=== PATIENT | female | born 1950 | race Caucasian/White ===

== ENCOUNTER 2016-06-29 11:42 | Outpatient (CLI) | payer MEDICARE, OTHER | END 2016-06-29 11:43 | disposition home or self-care (01) | DX: C50.912 Malignant neoplasm of unspecified site of left female breast (principal) ==

== ENCOUNTER 2016-09-02 11:46 | Day surgery (SDC) | payer MEDICARE, OTHER ==
[2016-09-02] MEDS ORDERED: LACTATED RINGERS 1,000 ML IV ONE ×3 (12:21→14:55)
[2016-09-02] MEDS ORDERED: fentaNYL 250 MCG/5 ML VIAL IVP ONE (14:18)
[2016-09-02] MEDS ORDERED: MIDAZOLAM 2 MG/2 ML VIAL IVP ONE (14:18)
== END 2016-09-02 11:47 | disposition home or self-care (01) ==
PROC: 0DBP8ZX Excision of Rectum, Via Natural or Artificial Opening Endoscopic, Diagnostic (ICD-10-PCS; 2016-09-02)
PROC: 0DBN8ZX Excision of Sigmoid Colon, Via Natural or Artificial Opening Endoscopic, Diagnostic (ICD-10-PCS; principal; 2016-09-02 13:00)
DX: R19.7 Diarrhea, unspecified (principal); K62.1 Rectal polyp; K21.9 Gastro-esophageal reflux disease without esophagitis; E03.9 Hypothyroidism, unspecified; Z80.0 Family history of malignant neoplasm of digestive organs; K59.09 Other constipation; M81.0 Age-related osteoporosis without current pathological fracture; Z85.3 Personal history of malignant neoplasm of breast
CPT/HCPCS: 45331; J3010; J7120

== ENCOUNTER 2017-02-24 08:33 | Outpatient (CLI) | payer MEDICARE, OTHER ==
--- NOTE | 2017-02-24 13:09 | Mammography Report ---
DIGITAL DIAGNOSTIC BILATERAL MAMMOGRAM: 02/24/2017 CLINICAL INDICATION: A 66-year-old nulliparous patient with personal history of left breast cancer s tatus post lumpectomy and radiation therapy. TECHNIQUE: Bilateral CC and MLO views, left true lateral and spot magnification views, bilateral lat erally exaggerated craniocaudal views. COMPARISON: 06/29/2016, 10/28/2015, 01/03/2015, 12/25/2014, 12/03/2014, 09/11/2013, 11/09/2011, 08/2009 FINDINGS: The breasts again demonstrate scattered fibroglandular densities bilaterally. Postoperati ve and post-treatment changes are again noted in the left breast, with continued involution of the se rafael. Punctate, typically benign calcifications are present. No suspicious masses, clustered microc alcifications, or regions of architectural distortion are identified. IMPRESSION: BENIGN FINDINGS. RECOMMENDATION: Routine annual screening unless otherwise clinically indicated. BIRADS CATEGORY 2 - BENIGN FINDINGS. STANDARD QUALIFYING STATEMENTS 1. This examination was reviewed with the aid of Computer-Aided Detection (CAD). 2. A negative or benign imaging report should not delay biopsy if clinically suspicious findings are present. Consider surgical consultation if warranted. More than 5% of cancers are not identified by i maging. 3. Dense breasts may obscure an underlying neoplasm. JOB #: [id number] EXT JOB #:[id number]
== END 2017-02-24 08:34 | disposition home or self-care (01) ==
LOC: DI 08:33
PROVIDERS: ATTEND Physician Assistant
DX: R92.2 Inconclusive mammogram (principal); Z85.3 Personal history of malignant neoplasm of breast
CPT/HCPCS: 77066

== ENCOUNTER 2018-04-05 15:15 | Outpatient (CLI) | payer MEDICARE, OTHER ==
--- NOTE | 2018-04-07 15:51 | DEXA Report ---
Reason: OSTEOPOROSIS Procedure Date: 04/05/2018 Accession Number: [id number] / [id number] Procedure: DEX - Dexa Spine and/or Hip CPT Code: FULL RESULT: EXAM: Dexa Spine and/or Hip DATE: 04/05/2018 4:10 PM CLINICAL HISTORY: OSTEOPOROSIS follow-up. Breast cancer. Thyroid hormone replacement therapy TECHNIQUE: Dual energy x-ray absorptiometry (DXA) was performed on a [employer] System. Regions measured are the AP Spine, femoral neck, and if needed forearm. COMPARISON: None. In accordance with the International Society for Clinical Densitometry (ISCD) guidelines, data from previous exams may be reanalyzed using current recommendations and techniques. This is done to allow a more accurate basis for comparison with the current study. FINDINGS: The data for the lumbar spine is as follows: BMD (g/cm/cm) T-SCORE Z-SCORE REGION L1 0.996 -1.1 0.2 L2 1.020 -1.5 -0.2 L3 1.076 -1.0 0.3 L4 1.045 -1.3 0.0 TOTAL 1.038 -1.2 0.1 NOTE: All evaluable vertebrae are used for classification The data for the hip is as follows: BMD (g/cm/cm) T-SCORE Z-SCORE REGION Neck 0.628 -2.9 -1.6 TOTAL 0.690 -2.5 -1.4 NOTE: The femoral neck or total proximal femur, whichever is lowest, is used for classification. * Denotes significant change at the 95% confidence level. Denotes dissimilar scan types or analysis methods. IMPRESSION: THE WHO CLASSIFICATION BASED ON THE INTERNATIONAL REFERENCE STANDARD IS OSTEOPOROSIS. THE FRACTURE RISK IS HIGH. RECOMMENDATION: Patients with diagnosis of osteoporosis or osteopenia should have regular bone mineral density assessment. For those eligible for Medicare, routine testing is allowed once every 2 years. Testing frequency can be increased for patients who have rapidly progressing disease or for those who are receiving medical therapy to restore bone mass. COMMENT: World Health Organization (WHO) definitions for osteoporosis and osteopenia: NORMAL BMD: T-score at -1.0 or higher, fracture risk is low OSTEOPENIA BMD: T-score between -1.0 and -2.5, fracture risk is increased. OSTEOPOROSIS BMD: T-score at -2.5 or lower, fracture risk is high. National Osteoporosis Foundation recommends: 1. Obtain adequate dietary calcium (at least 1200 mg per day) and vitamin D (400-800 international units per day). 2. Participate, as appropriate, in regular weightbearing and muscle-strengthening exercise. 3. Avoid tobacco use and reduce alcohol and caffeine intake. 4. For more detailed information see the website at www.NOF.org.
== END 2018-04-05 15:16 | disposition home or self-care (01) ==
LOC: DI 15:15
PROVIDERS: ATTEND Physician Assistant
DX: M81.0 Age-related osteoporosis without current pathological fracture (principal)
CPT/HCPCS: 77080

== ENCOUNTER 2018-04-05 15:17 | Outpatient (CLI) | payer MEDICARE, OTHER ==
--- NOTE | 2018-04-06 13:05 | Mammography Report ---
Reason: SCREEN w MARILIA Procedure Date: 04/05/2018 Accession Number: [id number] / [id number] Procedure: GRACE - Screening Mammo w/Marilia CPT Code: FULL RESULT: EXAM: Screening mammogram DATE: 04/05/2018 CLINICAL HISTORY: Screening mammogram TECHNIQUE: Bilateral CC and MLO views were obtained. COMPARISON: Mammogram 02/24/2017 FINDINGS: There are scattered fibroglandular densities. No suspicious masses, clustered microcalcifications, or regions of architectural distortion are identified. There is a left scar marker and biopsy clip. IMPRESSION: Benign findings RECOMMENDATION: Routine annual screening unless otherwise clinically indicated. BIRADS CATEGORY 2: Benign findings STANDARD QUALIFYING STATEMENTS: 1. This examination was not reviewed with the aid of Computer-Aided Detection (CAD). 2. A negative or benign imaging report should not delay biopsy if clinically suspicious findings are present. Consider surgical consultation if warrented. More than 5% of cancers are not identified by imaging. 3. Dense breasts may obscure an underlying neoplasm. 4. This examination was reviewed without the aid of 3D breast imaging (tomosynthesis).
== END 2018-04-05 15:18 | disposition home or self-care (01) ==
LOC: DI 15:17
PROVIDERS: ATTEND Physician Assistant
DX: Z12.31 Encounter for screening mammogram for malignant neoplasm of breast (principal); Z85.3 Personal history of malignant neoplasm of breast
CPT/HCPCS: 77063; 77067

== ENCOUNTER 2019-05-10 13:04 | Outpatient (CLI) | payer MEDICARE, OTHER ==
--- NOTE | 2019-05-11 08:23 | Mammography Report ---
Reason: SCREENING MAMMO Procedure Date: 05/10/2019 Accession Number: [id number] / [id number] Procedure: GRACE - Screening Mammo w/Mayank CPT Code: Final Report FULL RESULT: EXAM: Screening Mammo w/Mayank DATE: 05/10/2019 1:43 PM CLINICAL HISTORY: Screening encounter. History of nulliparity. Personal history of breast cancer status post left breast lumpectomy in 2014. TECHNIQUE: (B) - Bilateral CC, laterally exaggerated CC, MLO views were obtained. COMPARISON: 04/05/2018 through 10/21/2009. PARENCHYMAL PATTERN: (A) - The breast(s) demonstrate(s) scattered fibroglandular densities. FINDINGS: Postsurgical changes in the left breast are stable. There are no suspicious masses, calcifications, or areas of distortion. IMPRESSION: Benign findings. BI-RADS category 2. RECOMMENDATION: (ANNUAL) - Recommend routine annual screening mammography. BI-RADS CATEGORY: (2) - Benign Findings. STANDARD QUALIFYING STATEMENTS: 1. This examination was not reviewed with the aid of Computer-Aided Detection (CAD). 2. A negative or benign imaging report should not preclude biopsy if clinically suspicious findings are present. 3. Dense breasts may obscure an underlying neoplasm. 4. This examination was reviewed with the aid of 3D breast imaging (tomosynthesis).
== END 2019-05-10 13:05 | disposition home or self-care (01) ==
LOC: DI 13:04
PROVIDERS: ATTEND Physician Assistant
DX: Z12.31 Encounter for screening mammogram for malignant neoplasm of breast (principal); Z85.3 Personal history of malignant neoplasm of breast
CPT/HCPCS: 77063; 77067

== ENCOUNTER 2019-05-10 13:07 | Outpatient (CLI) | payer MEDICARE, OTHER ==
--- NOTE | 2019-05-11 09:21 | DEXA Report ---
Reason: OSTEOPOROSIS Procedure Date: 05/10/2019 Accession Number: [id number] / [id number] Procedure: DEX - Dexa Spine and/or Hip CPT Code: Final Report FULL RESULT: EXAM: Dexa Spine and/or Hip DATE: 05/10/2019 3:48 PM CLINICAL HISTORY: OSTEOPOROSIS TECHNIQUE: Dual energy x-ray absorptiometry (DXA) was performed on a [employer] System. Regions measured are the AP Spine, femoral neck, and if needed forearm. COMPARISON: 04/05/2018. In accordance with the International Society for Clinical Densitometry (ISCD) guidelines, data from previous exams may be reanalyzed using current recommendations and techniques. This is done to allow a more accurate basis for comparison with the current study. FINDINGS: The data for the lumbar spine is as follows: BMD (g/cm/cm) T-SCORE Z-SCORE REGION L1 0.928 -1.7 -0.4 L2 0.993 -1.7 -0.5 L3 1.043 -1.3 -0.1 L4 1.093 -0.9 0.4 TOTAL 1.024 -1.3 0.0 NOTE: All evaluable vertebrae are used for classification The data for the hip is as follows: BMD (g/cm/cm) T-SCORE Z-SCORE REGION Neck 0.624 -3.0 -1.6 TOTAL 0.699 -2.4 -1.3 NOTE: The femoral neck or total proximal femur, whichever is lowest, is used for classification. DXA RESULTS SUMMARY: Spine SCAN DATE AGE BMD CHANGE VS CHANGE VS PREVIOUS PREVIOUS % [birth year]2019 [age] 1.024 -0.014 -1.3 [birth year]/2018 [age] 1.038 * Denotes significant change at the 95% confidence level. Denotes dissimilar scan types or analysis methods. DXA RESULTS SUMMARY: Hip SCAN DATE AGE BMD CHANGE VS CHANGE VS PREVIOUS PREVIOUS % [birth year]2019 69.0 0[age]699 0.009 1.3 [birth year]2018 [age] 0.690 * Denotes significant change at the 95% confidence level. Denotes dissimilar scan types or analysis methods. IMPRESSION: THE WHO CLASSIFICATION BASED ON THE INTERNATIONAL REFERENCE STANDARD IS OSTEOPOROSIS. THE FRACTURE RISK IS HIGH. RECOMMENDATION: Patients with diagnosis of osteoporosis or osteopenia should have regular bone mineral density assessment. For those eligible for Medicare, routine testing is allowed once every 2 years. Testing frequency can be increased for patients who have rapidly progressing disease or for those who are receiving medical therapy to restore bone mass. COMMENT: World Health Organization (WHO) definitions for osteoporosis and osteopenia: NORMAL BMD: T-score at -1.0 or higher, fracture risk is low OSTEOPENIA BMD: T-score between -1.0 and -2.5, fracture risk is increased. OSTEOPOROSIS BMD: T-score at -2.5 or lower, fracture risk is high. National Osteoporosis Foundation recommends: 1. Obtain adequate dietary calcium (at least 1200 mg per day) and vitamin D (400-800 international units per day). 2. Participate, as appropriate, in regular weightbearing and muscle-strengthening exercise. 3. Avoid tobacco use and reduce alcohol and caffeine intake. 4. For more detailed information see the website at www.NOF.org.
== END 2019-05-10 13:08 | disposition home or self-care (01) ==
LOC: DI 13:07
PROVIDERS: ATTEND Physician Assistant
DX: M81.0 Age-related osteoporosis without current pathological fracture (principal)
CPT/HCPCS: 77080

== ENCOUNTER 2020-09-30 11:25 | Outpatient (CLI) | payer MEDICARE, OTHER ==
--- NOTE | 2020-10-01 12:22 | Mammography Report ---
BILATERAL DIGITAL SCREENING MAMMOGRAM 3D/2D WITH EXAGGERATED CC: 09/30/2020 CLINICAL: Routine screening. Personal history of left breast cancer. Routine screening. Personal hist ory of left breast cancer. Comparison is made to exams dated: 05/10/2019 mammogram, 04/05/2018 mammogram, 02/24/2017 mammogram, mammogram, and 10/28/2015 mammogram - [facility]. There are scattered fibrog landular elements in both breasts. There are benign post operative findings in the left breast. No significant masses, calcifications, or other findings are seen in either breast. There has been no significant interval change. IMPRESSION: BENIGN There is no mammographic evidence of malignancy. A 1 year screening mammogram is recommended. This exam was interpreted at Station ID: [id number]. NOTE: For mammograms, a report in lay terms will be sent to the patient. Approximately 15% of breast malignancies will not be visualized mammographically. In the management of a palpable breast mass, a negative mammogram must not discourage biopsy of a clinically suspicious lesion. Electronically Signed By: Pramod whatley/merary:09/30/2020 13:39:36 ACR BI-RADS Category 2: Benign Finding(s) 3342F PARENCHYMAL PATTERN: (A) - The breast(s) demonstrate(s) scattered fibroglandular densities. BI-RADS CATEGORY: (2) - 2 RECOMMENDATION: (ANNUAL) - Recommend routine annual screening mammography. [id number] 1 year screening LATERALITY: (B)
== END 2020-09-30 11:26 | disposition home or self-care (01) ==
LOC: DI.S 11:25
PROVIDERS: ATTEND Physician Assistant
DX: Z12.31 Encounter for screening mammogram for malignant neoplasm of breast (principal); Z85.3 Personal history of malignant neoplasm of breast

== ENCOUNTER 2020-10-21 09:32 | Emergency (ER) | payer MEDICARE, OTHER ==
--- OUTSIDE RECORDS SUMMARY | 2020-10-21 10:08 | EXTERNAL MEDICAL SUMMARY RPT | Continuity of Care Document ---
:1950 Demographics Phone Unavailable Preferred Language Unknown Marital Status Unknown Yarsani Affiliation Unknown Race Unknown Ethnic Group Unknown Author Organization [facility] Address [address] [phone] Phone Social History date description facility [phone]
--- NOTE | 2020-10-21 10:23 | ED Physician Documentation ---
History of Present Illness - Stated complaint Stated Complaint: FEVER/CHILLS - Chief complaint Chief Complaint: Fever - History obtained from History obtained from: Patient - History of Present Illness Timing: How many days ago Pain level max: 5 Pain level now: 4 - Additonal information Additional information: Patient is a 70-year-old female who presents to the emergency department stating that she has had fevers for the past several days, 10 1-1 02 at home. Nothing makes it better or worse. Has been ongoing for the past several days. She states that she noticed redness and swelling to her bilateral buttocks yesterday. She states similar presentation several years ago in which she Became septic from an infection in her leg. She states that she was treated for vaginal yeast infection about 6 months ago. No changes to her medications. No recent travel or antibiotics. No cough. No congestion. Nothing makes it better or worse Review of Systems Ten Systems: 10 systems reviewed and negative Constitutional: reports: Fever, Chills Ears: denies: Ear pain Nose: denies: Rhinorrhea / runny nose, Congestion Throat: denies: Sore throat Cardiac: denies: Chest pain / pressure Respiratory: denies: Dyspnea, Cough, Wheezing GI: reports: Abdominal Pain (mild, cramping occassionally.). denies: Nausea, Vomiting, Diarrhea : reports: Discharge (states no discharge currently). 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: Other HEENT: Tonsil/Adenoidectomy - Present Medications Home Medications: Ambulatory Orders Medication Instructions Recorded Confirmed Levothyroxine [Synthroid] 100 mcg ORAL DAILY 01/18/14 09/01/16 Omeprazole [Prilosec] 20 mg ORAL DAILY 01/18/14 09/01/16 PARoxetine HCL [Paroxetine HCl] 40 mg ORAL DAILY 01/18/14 09/01/16 Cholecalciferol (Vitamin D3) 2,000 unit PO DAILY 04/30/15 09/01/16 [Vitamin D3] L.acidoph,Paracasei, B.lactis 1 each PO DAILY 04/30/15 09/01/16 [Probiotic] Sulfamethox/Trimeth 800/160 1 each PO BID #28 tablet 10/21/20 [Bactrim Ds 800/160] cephALEXin [Keflex] 500 mg PO Q6H #40 cap 10/21/20 - Allergies Allergies/Adverse Reactions: Allergies Allergy/AdvReac Type Severity Reaction Status Date / Time No Known Drug Allergies Allergy Verified 09/01/16 14:37 - Social History Does the pt smoke?: No Smoking Status: Never smoker PD ED PE NORMAL - Vitals Vital signs reviewed: Yes - General General: Alert and oriented X 3, No acute distress - HEENT HEENT: Moist mucous membranes - Neck Neck: Supple, no meningeal sign - Cardiac Cardiac: RRR - Respiratory Respiratory: No respiratory distress, Clear bilaterally - Abdomen Abdomen: Soft, Non tender, Non distended - Rectal Rectal: Other (erythema and warmth to the B buttocks. no crepitus or induration. L>R. erythema to the R side of the perineum as well. minimal skin breakdown. ) - Derm Derm: Warm and dry - Extremities Extremities: No edema, No calf tenderness / cord - Neuro Neuro: Alert and oriented X 3 - Psych Psych: Normal mood, Normal affect Results - Vitals Vitals: Vital Signs - 24 hr 10/21/20 10/21/20 10/21/20 09:40 12:18 12:19 Temperature 35.7 C L Heart Rate 73 51 L 48 L Respiratory 16 16 16 Rate Blood Pressure 116/69 94/37 L 103/68 O2 Saturation 100 100 100 Oxygen O2 Source Room air - Labs Labs: Laboratory Tests 10/21/20 10/21/20 10/21/20 10:00 10:00 10:23 WBC 6.3 RBC 4.07 L Hgb 13.2 Hct 38.9 MCV 95.6 MCH 32.4 H MCHC 33.9 RDW 12.1 Plt Count 173 MPV 9.0 Neut # (Auto) 3.9 Lymph # (Auto) 1.5 Zapata # (Auto) 0.8 Eos # (Auto) 0.1 Baso # (Auto) 0.0 Absolute Nucleated RBC 0.00 Nucleated RBC % 0.0 Sodium 142 Potassium 3.7 Chloride 103 Carbon Dioxide 27 Anion Gap 12.0 BUN 9 Creatinine 0.9 Estimated GFR (MDRD) 62 L Glucose 111 H Lactic Acid Calcium 9.6 Total Bilirubin 0.9 AST 27 ALT 28 Alkaline Phosphatase 25 L Total Protein 7.4 Albumin 3.8 Globulin 3.6 Albumin/Globulin Ratio 1.1 Lipase 25 Urine Color Urine Clarity Urine pH Ur Specific Tarrs Urine Protein Urine Glucose (UA) Urine Ketones Urine Occult Blood Urine Nitrite Urine Bilirubin Urine Urobilinogen Ur Leukocyte Esterase Ur Microscopic Review Urine Culture Comments Nasal Adenovirus (PCR) NOT DETECTED Nasal B. parapertussis DNA (PCR) NOT DETECTED Nasal Coronavir 229E PCR NOT DETECTED Nasal Coronavir HKU1 PCR NOT DETECTED Nasal Coronavir NL63 PCR NOT DETECTED Nasal Coronavir OC43 PCR NOT DETECTED Nasal Enterovir/Rhinovir PCR NOT DETECTED Nasal Influenza B PCR NOT DETECTED Nasal Influenza A PCR NOT DETECTED Nasal Parainfluen 1 PCR NOT DETECTED Nasal Parainfluen 2 PCR NOT DETECTED Nasal Parainfluen 3 PCR NOT DETECTED Nasal Parainfluen 4 PCR NOT DETECTED Nasal RSV (PCR) NOT DETECTED Nasal B.pertussis DNA PCR NOT DETECTED Nasal C.pneumoniae (PCR) NOT DETECTED James Human Metapneumo PCR NOT DETECTED Nasal M.pneumoniae (PCR) NOT DETECTED Nasal SARS-CoV-2 (PCR) NOT DETECTED 10/21/20 10/21/20 10:25 11:20 WBC RBC Hgb Hct MCV MCH MCHC RDW Plt Count MPV Neut # (Auto) Lymph # (Auto) Zapata # (Auto) Eos # (Auto) Baso # (Auto) Absolute Nucleated RBC Nucleated RBC % Sodium Potassium Chloride Carbon Dioxide Anion Gap BUN Creatinine Estimated GFR (MDRD) Glucose Lactic Acid 1.6 Calcium Total Bilirubin AST ALT Alkaline Phosphatase Total Protein Albumin Globulin Albumin/Globulin Ratio Lipase Urine Color YELLOW Urine Clarity CLEAR Urine pH 6.0 Ur Specific Tarrs 1.010 Urine Protein NEGATIVE Urine Glucose (UA) NEGATIVE Urine Ketones NEGATIVE Urine Occult Blood NEGATIVE Urine Nitrite NEGATIVE Urine Bilirubin NEGATIVE Urine Urobilinogen 0.2 (NORMAL) Ur Leukocyte Esterase NEGATIVE Ur Microscopic Review NOT INDICATED Urine Culture Comments NOT INDICATED Nasal Adenovirus (PCR) Nasal B. parapertussis DNA (PCR) Nasal Coronavir 229E PCR Nasal Coronavir HKU1 PCR Nasal Coronavir NL63 PCR Nasal Coronavir OC43 PCR Nasal Enterovir/Rhinovir PCR Nasal Influenza B PCR Nasal Influenza A PCR Nasal Parainfluen 1 PCR Nasal Parainfluen 2 PCR Nasal Parainfluen 3 PCR Nasal Parainfluen 4 PCR Nasal RSV (PCR) Nasal B.pertussis DNA PCR Nasal C.pneumoniae (PCR) James Human Metapneumo PCR Nasal M.pneumoniae (PCR) Nasal SARS-CoV-2 (PCR) - Rads (name of study) CT abdomen and pelvis Radiology: Prelim report reviewed, EMP read contemporaneously PD MEDICAL DECISION MAKING - ED course Complexity details: reviewed results, re-evaluated patient, considered differential, d/w patient ED course: 70-year-old female with buttock cellulitis. This is bilateral, worse on the left. No evidence of abscess or deeper tissue infection on CT scan. White count normal. Lactate normal. Given Rocephin. Will place on oral antibiotics for home and have her follow-up closely with her doctor. Patient counseled regarding signs and symptoms for which I believe and urgent re-evaluation would be necessary. Patient with good understanding of and agreement to plan and is comfortable going home at this time This document was made in part using voice recognition software. While efforts are made to proofread this document, sound alike and grammatical errors may occur. IMPRESSION: 1. Questionable mild distal colonic wall thickening, which may represent low- grade colitis. Suggestion of prior appendectomy. No bowel obstruction. No abscess collection. No free fluid or free air. 2. Suggestion of cellulitis involving posterior medial aspect of bilateral gluteal region extending to bilateral upper thigh more prominent on the left side. No discrete drainable abscess collection. 3. Mildly thickened left adrenal gland without discrete adrenal nodule. 4. Mild bibasilar dependent atelectasis. Departure - Departure Disposition: 01 Home, Self Care Clinical Impression: Cellulitis Qualifiers: Site of cellulitis: buttock Qualified Code(s): L03.317 - Cellulitis of buttock Condition: Good Instructions: ED Infec Skin Cellulitis Follow-Up: Laron Armijo MD [Primary Care Provider] - Within 1 week Prescriptions: Sulfamethox/Trimeth 800/160 [Bactrim Ds 800/160] 1 each PO BID #28 tablet cephALEXin [Keflex] 500 mg PO Q6H #40 cap Comments: Take all antibiotics until gone. Return if you worsen. Follow-up with your doctor within 3 to 4 days for a wound check. Return sooner if you worsen. You should improve in the next 24 to 48 hours. Discharge Date/Time: 10/21/20 12:40
[2020-10-21 10:24] LABS: BASOPHILS % (AUTO) 0.3 %; EOSINOPHILS # (AUTO) 0.1 10^3/uL (0.0-0.7); EOSINOPHILS % (AUTO) 1.4 %; HCT - HEMATOCRIT 38.9 % (37.0-47.0); HGB - HEMOGLOBIN 13.2 g/dL (12.0-16.0); LYMPHOCYTES # (AUTO) 1.5 10^3/uL (1.5-3.5); LYMPHOCYTES % (AUTO) 23.1 %; MEAN CORPUSCULAR HEMOGLOBIN 32.4 pg (27.0-31.0); MEAN CORPUSCULAR HGB CONC 33.9 g/dL (32.0-36.0); MEAN CORPUSCULAR VOLUME 95.6 fL (81.0-99.0); MONOCYTES # (AUTO) 0.8 10^3/uL (0.0-1.0); MONOCYTES % (AUTO) 12.4 %; NEUTROPHILS # (AUTO) 3.9 10^3/uL (1.5-6.6); NEUTROPHILS % (AUTO) 62.3 %; PLT - PLATELET COUNT 173 10^3/uL (130-450); RED BLOOD COUNT 4.07 10^6/uL (4.20-5.40); RED CELL DISTRIBUTION WIDTH 12.1 % (12.0-15.0); WHITE BLOOD COUNT 6.3 x10^3/uL (4.8-10.8)
[2020-10-21 10:44] LABS: ALBUMIN 3.8 g/dL (3.2-5.5); ALBUMIN/GLOBULIN RATIO 1.1 (1.0-2.2); BILIRUBIN,TOTAL 0.9 mg/dL (0.2-1.0); CALCIUM 9.6 mg/dL (8.5-10.3); CREATININE 0.9 mg/dL (0.4-1.0); POTASSIUM 3.7 mmol/L (3.5-5.0); TOTAL PROTEIN 7.4 g/dL (6.7-8.2)
[2020-10-21 10:45] LABS: BILIRUBIN,URINE NEGATIVE (NEGATIVE); GLUCOSE, URINE (UA) NEGATIVE (NEGATIVE); KETONES,URINE (UA) NEGATIVE (NEGATIVE); LEUKOCYTE ESTERASE, URINE NEGATIVE (NEGATIVE); NITRITE,URINE NEGATIVE (NEGATIVE); OCCULT BLOOD,URINE NEGATIVE (NEGATIVE); PROTEIN,URINE NEGATIVE (NEGATIVE); UROBILINOGEN,URINE 0.2 (NORMAL) E.U./dL (NORMAL)
[2020-10-21 10:46] LABS: CLARITY,URINE CLEAR (CLEAR)
[2020-10-21] MEDS ORDERED: IOPAMIDOL-300 100 ML VIAL ONE (10:46)
[2020-10-21] MEDS ORDERED: IOPAMIDOL-300 100 ML VIAL IVP ONE (11:08)
--- NOTE | 2020-10-21 11:28 | CT Report ---
PROCEDURE: Abdomen/Pelvis W INDICATIONS: buttock inflammation B, abd pain CONTRAST: IV CONTRAST: Isovue 300 ml: 100 PO CONTRAST: *NO PO CONTRAST TECHNIQUE: After the administration of IV contrast, 5 mm thick sections acquired from the diaphragms to the symp hysis. 5 mm thick coronal and sagittal reformats were acquired. For radiation dose reduction, the f ollowing was used: automated exposure control, adjustment of mA and/or kV according to patient size. COMPARISON: None. FINDINGS: Image quality: Excellent. ABDOMEN: Lung bases: Mild bibasilar dependent atelectasis is seen.. Heart size is normal. Solid organs: Liver and spleen are normal in size and enhancement. Gallbladder is within normal shields its. Biliary system is non dilated. Pancreas enhances normally. No adrenal nodules. Mildly thicken ed left adrenal gland is seen. Kidneys demonstrate normal size and enhancement, without hydronephrosi s. Peritoneum and bowel: There is suggestion of prior appendectomy with postsurgical changes seen in ri ght lower quadrant. No abscess collection. There is no bowel obstruction. Mild descending colon and s igmoid colon wall thickening is seen which may be due to underdistention, low-grade colitis cannot be excluded. No free fluid or free air. Nodes and vessels: No retroperitoneal or mesenteric adenopathy by size criteria. Aorta and inferior vena cava are normal in size. Miscellaneous: No ventral hernias. PELVIS: Genitourinary: Bladder wall thickness is normal. Miscellaneous: No inguinal hernias or adenopathy. Multiple bilateral subcentimeter inguinal lymph n odes are seen and measures up to 6 mm in size. Subcutaneous fat stranding and mild skin thickening in medial aspect of bilateral gluteal region is seen extending to bilateral upper thigh more prominent on the left side suggestive of cellulitis. No discrete drainable abscess collection is seen. Bones: No suspicious bony lesions. No vertebral body compression fractures. IMPRESSION: 1. Questionable mild distal colonic wall thickening, which may represent low-grade colitis. Suggestio n of prior appendectomy. No bowel obstruction. No abscess collection. No free fluid or free air. 2. Suggestion of cellulitis involving posterior medial aspect of bilateral gluteal region extending t o bilateral upper thigh more prominent on the left side. No discrete drainable abscess collection. 3. Mildly thickened left adrenal gland without discrete adrenal nodule. 4. Mild bibasilar dependent atelectasis. Reviewed by: Deniz Macario MD on 10/21/2020 11:27 AM PDT Approved by: Deniz Macario MD on 10/21/2020 11:27 AM PDT Station ID: [id number]
[2020-10-21 11:32] LABS: B. PARAPERTUSSIS- RESP PCR PAN NOT DETECTED; B. PERTUSSIS- RESP PCR PANEL NOT DETECTED; C. PNEUMONIAE- RESP PCR PANEL NOT DETECTED; CORONAVIRUS 229E-RESP PCR NOT DETECTED; CORONAVIRUS HKU1-RESP PCR NOT DETECTED; CORONAVIRUS NL63-RESP PCR NOT DETECTED; CORONAVIRUS OC43-RESP PCR NOT DETECTED; HUMAN METAPNEUMOVIRUS NOT DETECTED; INFLUENZA A- RESP PCR PANEL NOT DETECTED; INFLUENZA B - RESP PCR PANEL NOT DETECTED; M. PNEUMONIAE- RESP PCR PANEL NOT DETECTED; PARAINFLUENZA VIRUS 1 NOT DETECTED; PARAINFLUENZA VIRUS 2 NOT DETECTED; PARAINFLUENZA VIRUS 3 NOT DETECTED; PARAINFLUENZA VIRUS 4 NOT DETECTED; RHINOVIRUS/ENTEROVIRUS NOT DETECTED; RSV- RESP PCR PANEL NOT DETECTED; SARS-CoV-2 -RESP PCR PANEL NOT DETECTED
[2020-10-21] MEDS ORDERED: cefTRIAXone 1 GM VIAL IVP STA (11:39)
[2020-10-21 12:20] VITALS: BP 103/68
[2020-10-21 17:22] LABS: BACTERIAL VAGINOSIS DNA NEGATIVE (NEGATIVE)
[2020-10-21 17:23] LABS: CANDIDA GLABRATA DNA NEGATIVE (NEGATIVE); CANDIDA GROUP DNA NEGATIVE (NEGATIVE); CANDIDA KRUSEI DNA NEGATIVE (NEGATIVE); TRICHOMONAS VAGINALIS DNA NEGATIVE (NEGATIVE)
== END 2020-10-21 12:40 | disposition home or self-care (01) ==
LOC: ED 09:32
DX: L03.317 Cellulitis of buttock (principal); Z20.822 Contact with and (suspected) exposure to COVID-19
CPT/HCPCS: 36415; 74177; 80053; 81003; 83605; 83690; 85025; 87040; 87481; 87631; 87661; 87801; 96374; 99284; Q9967; 0202U; 81001; 87086

== ENCOUNTER 2021-02-11 13:12 | Outpatient (CLI) | payer MEDICARE, OTHER | END 2021-02-11 13:13 | disposition short-term general hospital (02) | LOC: EMS 13:12 | DX: R00.1 Bradycardia, unspecified (principal) | CPT/HCPCS: A0425; A0427 ==

== ENCOUNTER 2021-09-08 15:47 | Outpatient (CLI) | payer MEDICARE, OTHER ==
--- NOTE | 2021-09-08 18:08 | XRAY Report ---
PROCEDURE: Foot 3 View LT INDICATIONS: LEFT FOOT PAIN TECHNIQUE: 3 views of the foot were acquired. COMPARISON: None FINDINGS: Bones: Displaced fracture of the base of the fifth metatarsal which extends into the fifth TMT joint. Soft tissues: No tibiotalar joint effusion. Achilles tendon appears normal. IMPRESSION: Mildly displaced, intra-articular fifth metatarsal base fracture. Reviewed by: Evelyn Roland MD, PhD on 09/08/2021 6:07 PM PDT Approved by: Evelyn Roland MD, PhD on 09/08/2021 6:07 PM PDT Station ID: [id number]
== END 2021-09-08 23:59 | disposition home or self-care (01) ==
LOC: DI.S 15:47
PROVIDERS: ATTEND Physician Assistant
DX: S92.352A Displaced fracture of fifth metatarsal bone, left foot, initial encounter for closed fracture (principal)

== ENCOUNTER 2021-09-10 13:51 | Outpatient (CLI) | payer MEDICARE, OTHER ==
--- NOTE | 2021-09-10 17:20 | DEXA Report ---
PROCEDURE: Dexa Spine and/or Hip INDICATIONS: [id number] TECHNIQUE: Dual energy x-ray absorptiometry (DXA) was performed on a [employer] System. Regions measur ed are the AP Spine, femoral neck, and if needed forearm. COMPARISON: None. FINDINGS: Lumbar Spine: Bone Mineral Density 0.991 g/cm/cm,T score -1.6, statistically decreased compared to the most rece nt prior study, by 3.2% Left Hip: Bone Mineral Density 0.75 g/cm/cm,T score -2.2, statistically unchanged from most recent prior study Left Femoral Neck: Bone Mineral Density 0.618 g/cm/cm, T score -3.0 (T score greater or equal to -1.0: NORMAL) (T score from -1.1 to -2.4: OSTEOPENIA) (T score less than or equal to -2.5 to: OSTEOPOROSIS) Impression: Osteoporosis Patients with diagnosis of osteoporosis or osteopenia should have regular bone mineral density assess ment. For those eligible for Medicare, routine testing is allowed once every 2 years. Testing frequ ency can be increased for patients who have rapidly progressing disease or for those who are receivin g medical therapy to restore bone mass. Reviewed by: Edward Farley MD on 09/10/2021 5:19 PM PDT Approved by: Edward Farley MD on 09/10/2021 5:19 PM PDT Station ID: [id number]
== END 2021-09-10 13:52 | disposition home or self-care (01) ==
LOC: DI 13:51
PROVIDERS: ATTEND Nurse Practitioner Family
DX: M81.0 Age-related osteoporosis without current pathological fracture (principal)

== ENCOUNTER 2021-11-30 13:07 | Outpatient (CLI) | payer MEDICARE, OTHER ==
--- NOTE | 2021-12-01 10:57 | Mammography Report ---
BILATERAL DIGITAL SCREENING MAMMOGRAM 3D/2D WITH EXAGGERATED CC: 11/30/2021 CLINICAL: Routine screening. Personal history of left breast cancer. Comparison is made to exam dated: 09/30/2020 mammogram - [facility]. There are sca ttered fibroglandular elements in both breasts. There are benign post operative findings in the left breast. No significant masses, calcifications, or other findings are seen in either breast. There has been no significant interval change. IMPRESSION: BENIGN There is no mammographic evidence of malignancy. A 1 year screening mammogram is recommended. This exam was interpreted at Station ID: [id number]. NOTE: For mammograms, a report in lay terms will be sent to the patient. Approximately 15% of breast malignancies will not be visualized mammographically. In the management of a palpable breast mass, a negative mammogram must not discourage biopsy of a clinically suspicious lesion. Electronically Signed By: Wayne Dangelo M.D. aty/penrad:12/01/2021 07:47:17 ACR BI-RADS Category 2: Benign Finding(s) 3342F PARENCHYMAL PATTERN: (A) - The breast(s) demonstrate(s) scattered fibroglandular densities. BI-RADS CATEGORY: (2) - 2 RECOMMENDATION: (ANNUAL) - Recommend routine annual screening mammography. [id number] 1 year screening LATERALITY: (B)
== END 2021-11-30 13:08 | disposition home or self-care (01) ==
LOC: DI.S 13:07
DX: Z12.31 Encounter for screening mammogram for malignant neoplasm of breast (principal); Z85.3 Personal history of malignant neoplasm of breast

== ENCOUNTER 2022-03-11 08:21 | Day surgery (SDC) | payer MEDICARE, OTHER ==
[2022-03-11] MEDS ORDERED: LACTATED RINGERS 1,000 ML IV ONE (08:43)
--- NOTE | 2022-03-11 09:34 | ANESTHESIA ---
Pre-Anesthesia VS, & Labs - Diagnosis screening - Procedure colonoscopy Vital Signs: Temp Pulse Resp BP Pulse Ox O2 Flow Rate 36.4 C L 61 18 130/76 100 0 03/11/22 08:43 03/11/22 08:43 03/11/22 08:43 03/11/22 08:43 03/11/22 08:43 03/11/22 08:43 Height: 5 ft 7 in Weight (kg): 73 kg Body Mass Index: 25.2 BMI Classification: Overweight - NPO >8 hours Last Fluid Intake: am prep - Is Patient ?: No - Lab Results Lab results reviewed: Yes Home Medications and Allergies Levothyroxine [Synthroid] 100 mcg ORAL DAILY 01/18/14 Omeprazole [Prilosec] 20 mg ORAL DAILY 01/18/14 PARoxetine HCL [Paroxetine HCl] 40 mg ORAL DAILY 01/18/14 Cholecalciferol (Vitamin D3) [Vitamin D3] 2,000 unit PO DAILY 04/30/15 L.acidoph,Paracasei, B.lactis [Probiotic] 1 each PO DAILY 04/30/15 Allergies/Adverse Reactions: Allergies Allergy/AdvReac Type Severity Reaction Status Date / Time No Known Drug Allergies Allergy Verified 09/01/16 14:37 Anes History & Medical History - Anesthetic History Anesthesia Complications: reports: No previous complications Family history of Anesthesia Complications: Denies Family history of Malignant Hyperthermia: Denies - Medical History Cardiovascular: reports: None Pulmonary: reports: None Gastrointestinal: reports: GERD, Colon polyps, Chronic diarrhea Urinary: reports: Chronic bladder infection Musculoskeletal: reports: Osteoporosis, Other Endocrine/Autoimmune: reports: HyPOthyroidism Smoking Status: Never smoker History of Cancer?: Yes (L breast w/radiation) - Surgical History General: reports: Appendectomy, Colonoscopy, EGD, Other (laparoscopic polyp removal with appendectomy) Eyes Ears Nose Throat (EENT): reports: Tonsil/Adenoidectomy Gynecologic: reports: Other Exam General: Alert, Oriented x3, Cooperative Dental: WNL Mouth Openin Fingerbreadth Neck Mobility: Normal Mallampati classification: II Thyromental Distance: 4-6 cm Respiratory: Lungs clear, Normal breath sounds, No respiratory distress Cardiovascular: Regular rate Neurological: Normal speech Mental/Cognitive Status: Alert/Oriented X3, Normal for patient Cognitive Status: Within normal limits Plan Anesthesia Type: Total IV Consent for Procedure(s) Verified and Reviewed: Yes Code Status: Attempt Resuscitation ASA classification: 2-Mild systemic disease Is this case an emergency?: No
[2022-03-11] MEDS ORDERED: PROPOFOL 200 MG/20 ML VIAL IVP ONE (10:44)
[2022-03-11] MEDS ORDERED: ePHEDrine 50 MG/ML VIAL IVP ONE (10:56)
[2022-03-11] MEDS ORDERED: LACTATED RINGERS 400 ML IV ONE (11:08)
[2022-03-11 11:19] VITALS: BP 115/60
--- NOTE | 2022-03-11 14:36 | ANESTHESIA POST OP EVALUATION ---
Anesthesia Post Eval - Post Anesthesia Eval Vitals: Last Vital Signs Temp 36.4 C L 03/11/22 11:18 Pulse 68 03/11/22 11:18 Resp 16 03/11/22 11:18 BP 115/60 03/11/22 11:18 Pulse Ox 100 03/11/22 11:18 O2 Flow Rate 0 03/11/22 08:43 CV Function Including HR & BP: Stable Pain Control: Satisfactory Nausea & Vomiting: Negative Mental Status: Baseline Respiratory Status: Airway Patent Hydration Status: Satisfactory Anesthesia Complications: None
== END 2022-03-11 08:22 | disposition home or self-care (01) ==
LOC: SDS 08:21
PROVIDERS: ATTEND Surgery
DX: Z12.11 Encounter for screening for malignant neoplasm of colon (principal); K57.30 Diverticulosis of large intestine without perforation or abscess without bleeding; K64.8 Other hemorrhoids; Z80.0 Family history of malignant neoplasm of digestive organs; Z86.010 Personal history of colon polyps; Z98.0 Intestinal bypass and anastomosis status
CPT/HCPCS: G0105; J7120

== ENCOUNTER 2023-05-26 07:54 | Outpatient (CLI) | payer MEDICARE, OTHER ==
--- NOTE | 2023-05-26 14:04 | CT Report ---
PROCEDURE: Low Dose Lung Cancer Screen INDICATIONS: HISTORY OF SMOKING TECHNIQUE: A CT scan of the chest was performed. Intravenous contrast media was not administered. Images were re corded and evaluated at appropriate window settings. Reformats: axial MIP of the chest, coronal and s agittal. For radiation dose reduction, the following was used: automated exposure control, adjustment of mA and/or kV according to patient size. COMPARISON: None. FINDINGS: Lungs and pleura: Moderate bilateral pulmonary emphysema noted. On image , there is a central rig ht upper lobe spiculated nodule measuring 6 mm. Remainder the lungs and pleural spaces are clear Mediastinum: Heart size is normal. No pericardial effusion. No large vessel abnormality. No mediastin al adenopathy by size criteria. Chest wall and lower neck: Thyroid is unremarkable. No axillary or supraclavicular adenopathy by size . Bones: No aggressive osseous abnormality. Upper Abdomen: Unremarkable. IMPRESSION: Left upper lobe 6 mm spiculated pulmonary nodule in background of moderate pulmonary emphysema. Lung RAD: 4X - Highly Suspicious. Recommendation: 3 month follow-up CT and/or PET/CT Reviewed by: Elian Queen MD on 05/26/2023 1:02 PM AKST Approved by: Elian Queen MD on 05/26/2023 1:02 PM AKST Station ID: [id number]
== END 2023-05-26 07:55 | disposition home or self-care (01) ==
LOC: DI 07:54
PROVIDERS: ATTEND Nurse Practitioner Family
DX: Z12.2 Encounter for screening for malignant neoplasm of respiratory organs (principal); Z87.891 Personal history of nicotine dependence; R91.1 Solitary pulmonary nodule; J43.9 Emphysema, unspecified

== ENCOUNTER 2023-05-26 07:55 | Outpatient (CLI) | payer MEDICARE, OTHER ==
--- NOTE | 2023-05-27 17:11 | Mammography Report ---
BILATERAL DIGITAL DIAGNOSTIC MAMMOGRAM 3D/2D WITH SPOT COMPRESSION: 05/26/2023 CLINICAL: Palpable left breast lump. Due for bilateral exam. Comparison is made to exams dated: 11/30/2021 mammogram, 09/30/2020 mammogram, 05/10/2019 mammogram, 1 mammogram, 02/24/2017 mammogram, and 06/29/2016 mammogram - [facility]. There are scattered areas of fibroglandular density in both breasts (category b / 25%-50% glandular t issue). There is a possible developing 6 mm irregular asymmetry in the right breast at 3 o'clock middle depth . This is seen in additional views. This correlates as an incidental finding. There is an irregular high density asymmetry in the left breast at 1 o'clock posterior depth. This a marc is similar to slightly increased in density compared to priors, but no discrete lesion in additio nal views. There is a biopsy clip and a post-surgical scar associated with the asymmetry. No other significant masses or calcifications are seen in either breast. IMPRESSION: INCOMPLETE: NEEDS ADDITIONAL IMAGING EVALUATION The possible developing 6 mm irregular asymmetry in the right breast at 3 o'clock middle depth most l ikely is a subdermal or dermal lesion but remains indeterminate. An ultrasound is recommended. The irregular high density asymmetry in the left breast at 1 o'clock posterior depth most likely is a post-lumpectomy scar and is indeterminate. An ultrasound is recommended. Bilateral breast ultrasound was performed immediately following this exam. This exam was interpreted at Station ID: [id number]. NOTE: For mammograms, a report in lay terms will be sent to the patient. Approximately 15% of breast malignancies will not be visualized mammographically. In the management of a palpable breast mass, a negative mammogram must not discourage biopsy of a clinically suspicious lesion. Electronically Signed By: Tonya rowe/:05/27/2023 16:57:23 Entry: - 05/27/2023 16:57:23 ACR BI-RADS Category 0: Incomplete 3340F PARENCHYMAL PATTERN: (A) - The breast(s) demonstrate(s) scattered fibroglandular densities. BI-RADS CATEGORY: (0) - 0 Ultrasound [id number] Immediate follow-up LATERALITY: (B)
--- NOTE | 2023-05-27 17:12 | Ultrasound Report ---
LIMITED ULTRASOUND OF LEFT BREAST: 05/26/2023 CLINICAL: Palpable left breast lump. Patient returns today to evaluate a focal asymmetry in the right breast. Comparison is made to exams dated: 05/26/2023 mammogram, 11/30/2021 mammogram, 09/30/2020 mammogram, mammogram, 04/05/2018 mammogram, and 02/24/2017 mammogram - [facility]. Color flow ultrasound of the left breast 2-3 o'clock region was performed. He scale images of the real-time examination were reviewed. There is an irregular post-surgical scar with a spiculated margin in the left breast at 2 o'clock pos terior depth. This irregular post-surgical scar displays posterior acoustic shadowing. This correla myesha as palpated and with mammography findings. There is associated skin retraction. Color flow imag ing demonstrates that there is no increase in vascularity. IMPRESSION: PROBABLY BENIGN The irregular post-surgical scar in the left breast corresponds to the mammogram and palpable finding , has expected scar-like features, and is probably benign. A follow-up left mammogram and an ultrasound in 6 months is recommended to demonstrate stability. The patient was instructed to return sooner if this area grows before 6 months. Findings and recommendations were conveyed to the patient at time of exam. This exam was interpreted at Station ID: [id number]. Electronically Signed By: Tonya rowe/:05/26/2023 12:18:39 Ultrasound BI-RADS: 3 Probably benign BI-RADS CATEGORY: (3) - 3 Mammo and [place] [id number] 6 month follow-up LATERALITY: (L)
--- NOTE | 2023-05-27 17:12 | Ultrasound Report ---
LIMITED ULTRASOUND OF RIGHT BREAST: 05/26/2023 CLINICAL: Patient returns today to evaluate a focal asymmetry in the right breast. Comparison is made to exams dated: 05/26/2023 mammogram, 11/30/2021 mammogram, 09/30/2020 mammogram, mammogram, 04/05/2018 mammogram, and 02/24/2017 mammogram - [facility]. Color flow ultrasound of the right breast 3 o'clock region was performed. There is a 0.5 cm x 0.4 cm x 0.3 cm sub dermal cyst in the right breast at 3 o'clock middle depth 10 cm from the nipple. THere is a partial tract through the dermal layer. This correlates with mammogra phy findings. Color flow imaging demonstrates that there is no vascularity present. IMPRESSION: BENIGN There is no sonographic evidence of malignancy. The 0.5 cm x 0.4 cm x 0.3 cm cyst in the right breast is consistent with a sebaceous cyst and is lenore gn. Return to annual mammogram screening schedule is recommended. Findings and recommendations were conveyed to the patient at time of exam. This exam was interpreted at Station ID: [id number]. Electronically Signed By: Tonya rowe/:05/26/2023 10:10:18 Ultrasound BI-RADS: 2 Benign BI-RADS CATEGORY: (2) - 2 Mammogram [id number] return to screening LATERALITY: (B)
== END 2023-05-26 07:56 | disposition home or self-care (01) ==
LOC: DI 07:55
PROVIDERS: ATTEND Nurse Practitioner Family
DX: N63.21 Unspecified lump in the left breast, upper outer quadrant (principal); N60.01 Solitary cyst of right breast; R92.323 Mammographic fibroglandular density, bilateral breasts

== ENCOUNTER 2023-07-12 13:20 | Outpatient (CLI) | payer MEDICARE, OTHER | END 2023-07-12 13:21 | disposition home or self-care (01) | LOC: RT 13:20 | PROVIDERS: ATTEND Nurse Practitioner Family | DX: J44.9 Chronic obstructive pulmonary disease, unspecified (principal) | CPT/HCPCS: 94010; 94375; 94729 ==

== ENCOUNTER 2023-08-30 12:36 | Outpatient (CLI) | payer MEDICARE, OTHER ==
--- NOTE | 2023-08-30 18:39 | CT Report ---
PROCEDURE: Lung Cancer Screen INDICATIONS: HIST OF SMOKING TECHNIQUE: A CT scan of the chest was performed. Intravenous contrast media was not administered. Images were re corded and evaluated at appropriate window settings. Reformats: axial MIP of the chest, coronal and s agittal. For radiation dose reduction, the following was used: automated exposure control, adjustment of mA and/or kV according to patient size. COMPARISON: Chest CT, 05/26/2023. FINDINGS: Image quality: Excellent. Lungs and pleura: The 6 mm subsolid nodule in the left upper lobe appears unchanged in size. There is a 7 mm groundglass nodule in the right lower lobe, also unchanged. No pleural effusions. No pneumot horax. Moderate emphysema.. Mediastinum: Heart size is normal. No pericardial effusion. No large vessel abnormality. No mediastin al adenopathy by size criteria. Small hiatal hernia Chest wall and lower neck: Thyroid is unremarkable. No axillary or supraclavicular adenopathy by size . Bones: No aggressive osseous abnormality. Mild spondylitic changes in thoracic spine. Upper Abdomen: Unremarkable. IMPRESSION: Lung RADS: 3 - Probably Benign. Recommendation: Continue screening in 6 Months with LDCT Reviewed by: Mica Abel MD on 08/30/2023 5:37 PM AKDT Approved by: Mica Abel MD on 08/30/2023 5:37 PM AKBILLY Station ID: [id number]
== END 2023-08-30 12:37 | disposition home or self-care (01) ==
LOC: DI 12:36
PROVIDERS: ATTEND Nurse Practitioner Family
DX: Z12.2 Encounter for screening for malignant neoplasm of respiratory organs (principal); Z87.891 Personal history of nicotine dependence; R91.8 Other nonspecific abnormal finding of lung field; J43.9 Emphysema, unspecified

== ENCOUNTER 2023-11-22 12:21 | Outpatient (CLI) | payer MEDICARE, OTHER ==
--- NOTE | 2023-11-23 10:23 | Mammography Report ---
UNILATERAL LEFT DIGITAL DIAGNOSTIC MAMMOGRAM 3D/2D: 11/22/2023 CLINICAL: Patient returns for a 6 month follow up of the left breast. Comparison is made to exams dated: 05/26/2023 ultrasound, 05/26/2023 mammogram, 11/30/2021 mammogram, mammogram, 05/10/2019 mammogram, and 04/05/2018 mammogram - [facility]. There are scattered areas of fibroglandular density in the left breast (category b / 25%-50% glandula r tissue). There is a stable irregular high density asymmetry in the left breast at 1 o'clock posterior depth. This is not seen as a distinct structure in additional views. There is a biopsy clip and a post-surg ical scar associated with the asymmetry. No significant changes. No other significant masses or calcifications are seen in the breast. IMPRESSION: INCOMPLETE: NEEDS ADDITIONAL IMAGING EVALUATION The asymmetry in the left breast area of post surgical scar is stable, and most likely is a post-lump ectomy scar. An ultrasound is recommended to document stability. The patient chose not to wait for further ultrasound imaging during this visit. She will be contacted to return for follow up ultrasound as soon as possible. This exam was interpreted at Station ID: [id number]. NOTE: For mammograms, a report in lay terms will be sent to the patient. Approximately 15% of breast malignancies will not be visualized mammographically. In the management of a palpable breast mass, a negative mammogram must not discourage biopsy of a clinically suspicious lesion. Electronically Signed By: Tonya rowe/:11/22/2023 13:50:05 ACR BI-RADS Category 0: Incomplete 3340F PARENCHYMAL PATTERN: (A) - The breast(s) demonstrate(s) scattered fibroglandular densities. BI-RADS CATEGORY: (0) - 0 Ultrasound [id number] Immediate follow-up LATERALITY: (B)
== END 2023-11-22 12:22 | disposition home or self-care (01) ==
LOC: DI 12:21
PROVIDERS: ATTEND Nurse Practitioner Family
DX: N63.21 Unspecified lump in the left breast, upper outer quadrant (principal); R92.322 Mammographic fibroglandular density, left breast

== ENCOUNTER 2023-12-06 13:37 | Outpatient (CLI) | payer MEDICARE, OTHER ==
--- NOTE | 2023-12-07 12:37 | Ultrasound Report ---
LIMITED ULTRASOUND OF LEFT BREAST: 12/06/2023 CLINICAL: Patient returns for a 6 month follow up of the left breast. Comparison is made to exams dated: 11/22/2023 mammogram, 05/26/2023 ultrasound, 05/26/2023 ultrasound, 1 07/27/2022 mammogram, 11/30/2021 mammogram, and 09/30/2020 mammogram - [facility]. Color flow and real-time ultrasound of the left breast 2-3 o'clock region were performed. He scal e images of the real-time examination were reviewed. In the area of prior clinical palpable concern in the left breast at 2 o'clock, 6 cm from the nipple, there is again seen post surgical changes/scar. Color flow imaging demonstrates no vascularity is pr esent. Findings are stable since prior ultrasound on 05/26/2023. IMPRESSION: BENIGN Left breast post surgical changes/scarring at 2 o'clock at distance of 6 cm from the nipple. No sonog raphic evidence of malignancy. Return to annual mammogram screening schedule is recommended, which sharon ortega will be due for in May 2024. Clinical follow-up is also recommended, and further management of palpable abnormalities or other foc al signs or symptoms should be based on the results of clinical evaluation. If palpable abnormality o r other concerning symptom persists or progresses, further clinical evaluation should be considered. Findings and recommendations were conveyed to the patient during today's evaluation. This exam was interpreted at Station ID: [id number]. Electronically Signed By: Diamond Montiel M.D., Ph.D. eb/:12/06/2023 15:35:47 Ultrasound BI-RADS: 2 Benign BI-RADS CATEGORY: (2) - 2 Mammogram [id number] return to screening LATERALITY: (B)
== END 2023-12-06 13:38 | disposition home or self-care (01) ==
LOC: DI 13:37
PROVIDERS: ATTEND Nurse Practitioner Family
DX: N63.21 Unspecified lump in the left breast, upper outer quadrant (principal)

== ENCOUNTER 2024-03-01 14:11 | Outpatient (CLI) | payer MEDICARE, OTHER ==
--- NOTE | 2024-03-02 11:18 | CT Report ---
PROCEDURE: Lung Cancer Screen INDICATIONS: EX SMOKER TECHNIQUE: A CT scan of the chest was performed. Intravenous contrast media was not administered. Images were re corded and evaluated at appropriate window settings. Reformats: axial MIP of the chest, coronal and s agittal. For radiation dose reduction, the following was used: automated exposure control, adjustment of mA and/or kV according to patient size. COMPARISON: 05/26/2023 FINDINGS: Image quality: Diagnostic. Lungs and pleura:Right upper lobe nodule with slightly irregular borders again seen, measuring about 5 mm on today's study (10/09). This is stable. No new or enlarging nodules. Right Bochdalek's hernia. This contains fat. Right lower lobe groundglass nodule is stable measuring 6 mm in dimension (). Background mild to moderate emphysema. New nodule in the right upper lung, likely endobronchial, measuring 3 mm (). Mediastinum, heart, and esophagus: Normal heart size. Annular and coronary calcifications. No patholo gic lymph nodes by size criteria Chest wall and thyroid: Unremarkable Upper abdomen: No gross abnormality on these limited noncontrast images with low radiation dose Bones: Unremarkable. There are degenerative changes. IMPRESSION: Stable left upper lobe nodule with mildly irregular margins, groundglass right lower lobe nodule, an d tiny possible subsegmental endobronchial nodule which is new in the right upper lobe. Lung RADS 3: Recommend low dose lung cancer screening in 3 months. Coronary calcifications. Reviewed by: Jaison Osorio MD on 03/02/2024 11:16 AM PDT Approved by: Jaison Osorio MD on 03/02/2024 11:16 AM PDT Station ID: [id number]
== END 2024-03-01 14:12 | disposition home or self-care (01) ==
LOC: DI 14:11
PROVIDERS: ATTEND Nurse Practitioner Family
DX: Z12.2 Encounter for screening for malignant neoplasm of respiratory organs (principal); R91.8 Other nonspecific abnormal finding of lung field; Z87.891 Personal history of nicotine dependence